=== PATIENT | female | born 1965 | race Two or more races ===

== ENCOUNTER 2022-06-18 14:49 | Emergency (ER) | payer MEDICARE ==
[~2022-06-18] VITALS: Ht 175.3 cm; Wt 69.0 kg
[2022-06-18] MEDS ORDERED: ACETAMINOPHEN 325MG TABLET PO ONE (16:45)
[2022-06-18 19:14] VITALS: BP 127/89
== END 2022-06-18 19:16 | disposition home or self-care (01) ==
LOC: ER 14:49
DX: S42.302A Unspecified fracture of shaft of humerus, left arm, initial encounter for closed fracture (principal); S52.122A Displaced fracture of head of left radius, initial encounter for closed fracture; W18.39XA Other fall on same level, initial encounter; Y93.89 Activity, other specified; Y92.89 Other specified places as the place of occurrence of the external cause; Y99.8 Other external cause status; Z88.0 Allergy status to penicillin; Z88.6 Allergy status to analgesic agent
CPT/HCPCS: 29105; 73060; 73070; 73090; 73100; 99284